=== PATIENT | female | born 1955 ===

== ENCOUNTER 2017-12-03 10:12 | Outpatient (CLI) | payer OTHER ==
--- NOTE | 2017-12-14 10:08 | Mammography Report ---
Procedure Date: 12/03/2017 Accession Number: [id number] / [id number] Procedure: MGN - Screening Mammo Dig Bilat CPT Code: FULL RESULT: EXAM: Screening Mammo Dig Bilat DATE: 12/03/2017 10:28 AM CLINICAL HISTORY: 61-year-old female presents for screening mammogram. TECHNIQUE: Bilateral CC and MLO views were obtained. COMPARISON: 09/24/2014. FINDINGS: The breasts demonstrate scattered fibroglandular densities bilaterally. No suspicious masses, clustered microcalcifications, or regions of architectural distortion are identified. IMPRESSION: Negative examination RECOMMENDATION: Routine annual screening unless otherwise clinically indicated. BIRADS CATEGORY 1: Negative STANDARD QUALIFYING STATEMENTS: 1. This examination was reviewed with the aid of Computer-Aided Detection (CAD). 2. A negative or benign imaging report should not delay biopsy if clinically suspicious findings are present. Consider surgical consultation if warrented. More than 5% of cancers are not identified by imaging. 3. Dense breasts may obscure an underlying neoplasm.
== END 2017-12-03 10:13 | disposition home or self-care (01) ==
LOC: DI.N 10:12
PROVIDERS: ATTEND Registered Nurse
DX: Z12.31 Encounter for screening mammogram for malignant neoplasm of breast (principal)
CPT/HCPCS: 77067

== ENCOUNTER 2020-10-15 14:38 | Outpatient (CLI) | payer MEDICARE ==
--- NOTE | 2020-10-15 15:07 | XRAY Report ---
PROCEDURE: Toe(s) RT INDICATIONS: PAIN OF TOE OF RIGHT FOOT TECHNIQUE: 3 views of the first toe(s) acquired. COMPARISON: None FINDINGS: Bones: No fractures or dislocations. No suspicious bony lesions. Severe joint space narrowing and periarticular osteophyte formation at the first metatarsophalangeal joint. Mild joint space narrowing and periarticular osteophyte formation at the interphalangeal joints of the digits. Soft tissues: No suspicious soft tissue densities. IMPRESSION: Osteoarthritis. No acute fracture. No osseous lesion. If symptoms and/or clinical suspicion for patho logy continue, further assessment with repeat plain films, or advanced imaging (e.g., CT, MRI, or bon e scan) is recommended for further assessment. Reviewed by: Matteo Villatoro MD on 10/15/2020 3:06 PM PDT Approved by: Matteo Villatoro MD on 10/15/2020 3:06 PM PDT Station ID: [id number]
== END 2020-10-15 14:39 | disposition home or self-care (01) ==
LOC: DI.S 14:38
PROVIDERS: ATTEND Nurse Practitioner Family
DX: M79.674 Pain in right toe(s) (principal); M19.071 Primary osteoarthritis, right ankle and foot